=== PATIENT | female | born 1940 | race Caucasian/White ===

== ENCOUNTER 2017-11-18 21:09 | Emergency (ER) | payer MEDICARE ==
[2017-11-18] MEDS ORDERED: TETANUS/DIPHTHERIA/PERTUSSIS 0.5 ML SYRINGE IM ONE (21:36)
--- NOTE | 2017-11-18 22:12 | CT Report ---
EXAM: CT HEAD EXAM DATE: 11/18/2017. CLINICAL HISTORY: Fall, on blood thinners. COMPARISON: None. TECHNIQUE: Multiaxial CT images were obtained from the foramen magnum to the vertex. Reformats: Coron al. IV contrast: None. In accordance with CT protocol optimization, one or more of the following dose reduction techniques w ere utilized for this exam: automated exposure control, adjustment of mA and/or KV based on patient s ize, or use of iterative reconstructive technique. FINDINGS: Parenchyma: No intraparenchymal hemorrhage. No evidence of mass, midline shift, or CT findings of acu te infarction. Clifton-white differentiation is distinct. Diffuse chronic microangiopathic white matter changes are evident. Extraaxial Spaces: Normal for age. No subdural or epidural collections identified. Ventricles: The ventricles and cortical sulci are enlarged, consistent with age-related tissue loss. Sinuses and orbits: Imaged paranasal sinuses, orbits, and mastoids show no significant abnormality. Bones: No evidence of fracture or calvarial defect. Other: None. IMPRESSION: Generalized age-related cortical atrophic changes without evidence of acute intracranial abnormality. [facility] Referring Provider Line: [phone] SITE ID: [id number]
--- NOTE | 2017-11-18 22:12 | CT Preliminary Report ---
Exam: CT HEAD W/O IMPRESSION: Generalized age-related cortical atrophic changes without evidence of acute intracranial abnormality. [facility] SITE ID: [id number]
--- NOTE | 2017-11-18 22:31 | XRAY Preliminary Report ---
Exam: XR KNEE 3 VIEW LT IMPRESSION: No acute osseous abnormality with possible small joint effusion. [facility] SITE ID: [id number]
--- NOTE | 2017-11-18 22:38 | XRAY Report ---
EXAM: LEFT KNEE RADIOGRAPHY EXAM DATE: 11/18/2017 10:06 PM. CLINICAL HISTORY: Fall, knee pain. COMPARISON: None. TECHNIQUE: 3 views. FINDINGS: Bones: There is diffuse osseous demineralization. No acute displaced fracture. No suspicious focal os seous lesion. Joints: There may be a small joint effusion. No subluxation/dislocation. No significant degenerative change. Soft Tissues: Vascular calcifications noted. IMPRESSION: No acute osseous abnormality with possible small joint effusion. [facility] Referring Provider Line: [phone] SITE ID: [id number]
[2017-11-18 22:43] VITALS: BP 149/88
--- NOTE | 2017-11-18 22:43 | ED Physician Documentation ---
PD HPI Fall - Stated complaint Stated Complaint: GLF - Chief complaint Chief Complaint: Laceration - History obtained from History obtained from: Patient, Family - History of Present Illness Mechanism of injury: Slipped Fall distance: Standing position Where injury occurred: Home Timing - onset: Today Injury(ies) location: Head, Left Lower Extremity, Left Hand Quality of pain: Pain Associated symptoms: No: LOC, AMS Contributing factors: Anticoagulated Similar symptoms before: Has not had sx before Recently seen: Not recently seen - Additional information Additional information: patient is a 77 year old female with a history of dementia who is being brought in by her son after falling. patient was walking with a dog when she tripped on the concrete. Patient hit her head/face, right palm and left knee. patient denies any loc but is on pradaxa. Review of Systems Unable to obtain: Dementia PD PAST MEDICAL HISTORY - Past Medical History Past Medical History: Yes Cardiovascular: Hypertension - Past Surgical History Past Surgical History: No - Present Medications Home Medications: Ambulatory Orders Medication Instructions Recorded Confirmed Apixaban [Eliquis] mg PO 11/18/17 Diuretic 11/18/17 Metoprolol Tartrate mg PO 11/18/17 - Allergies Allergies/Adverse Reactions: Allergies Allergy/AdvReac Type Severity Reaction Status Date / Time No Known Drug Allergies Allergy Verified 11/18/17 21:29 - Social History Does the pt smoke?: No Smoking Status: Never smoker Does the pt drink ETOH?: No Does the pt have substance abuse?: No - Immunizations Immunizations are current?: No Immunizations: TDAP >10years/unknown PD ED PE NORMAL - Vitals Vital signs reviewed: Yes - General General: No acute distress - HEENT HEENT: Dentition benign - Cardiac Cardiac: RRR - Respiratory Respiratory: No respiratory distress - Abdomen Abdomen: Non distended - Neuro Neuro: No motor deficit, Normal speech Eye Opening: Spontaneous Motor: Obeys Commands Verbal: Oriented GCS Score: 15 PD ED PE EXPANDED - HEENT HEENT: Head injury (ecchymosis and superficial abrasions around right eye, no entraptment or bony deformity) - Derm Derm: Abrasion (s) (abrasion, right palm) Results - Vitals Vitals: Vital Signs - 24 hr 11/18/17 11/18/17 21:13 22:43 Temperature 35.9 C L Heart Rate 87 73 Respiratory 18 16 Rate Blood Pressure 126/96 H 149/88 H O2 Saturation 99 97 Oxygen O2 Source Room air - Rads (name of study) knee x-ray Radiology: Final report received (no acute fracture or dislocation) ct head Radiology: Final report received (no acute intracranial pathology) PD MEDICAL DECISION MAKING - ED course Complexity details: reviewed old records, reviewed results, re-evaluated patient , considered differential, d/w patient, d/w family ED course: Patient was seen and examined at bedside. patient was well appearing and in no distress. Patient was sent for imaging. when patient returned the results were reviewed. there were no acute fractures, dislocations or acute intracranial pathology. patient was treated with tdap and wounds were washed. Patient required no further in patient work up at this time and was stable for discharge with outpatient follow up. Departure - Departure Disposition: 01 Home, Self Care Clinical Impression: Fall Condition: Good Instructions: ED Abrasion Follow-Up: primary,care provider [Other] - As Needed Comments: Your diagnostics today were within normal limits. There were no acute fractures , dislocations or intracranial pathology. You have been treated with tetanus. You should keep your wounds clean and dry and can apply topical antibiotics as needed. You should follow up with your doctor if your symptoms don't improve. You may return to the emergency department at any time for new, worsening or uncontrollable symptoms. Discharge Date/Time: 11/18/17 22:50
== END 2017-11-18 22:50 | disposition home or self-care (01) ==
LOC: ED 21:09
DX: S00.11XA Contusion of right eyelid and periocular area, initial encounter (principal); S00.211A Abrasion of right eyelid and periocular area, initial encounter; S60.511A Abrasion of right hand, initial encounter; M25.562 Pain in left knee; W01.0XXA Fall on same level from slipping, tripping and stumbling without subsequent striking against object, initial encounter; Y93.K1 Activity, walking an animal; Y92.009 Unspecified place in unspecified non-institutional (private) residence as the place of occurrence of the external cause; Z79.01 Long term (current) use of anticoagulants; I10 Essential (primary) hypertension; F03.90 Unspecified dementia, unspecified severity, without behavioral disturbance, psychotic disturbance, mood disturbance, and anxiety; Z23 Encounter for immunization
CPT/HCPCS: 70450; 90471; 99283